=== PATIENT | female | born 1980 | race Caucasian/White ===

== ENCOUNTER 2020-04-16 10:42 | Outpatient (CLI) | payer OTHER ==
--- NOTE | 2020-04-16 15:05 | XRAY Report ---
PROCEDURE: Finger(s) RT INDICATIONS: RIGHT 3RD DIGIT PAIN TECHNIQUE: AP hand, 2 views of the right third finger(s) acquired. COMPARISON: None FINDINGS: Bones: No fractures or dislocations. No suspicious bony lesions. Soft tissues: No suspicious soft tissue calcifications. IMPRESSION: No acute finding. Reviewed by: Christian Russell MD on 04/16/2020 3:04 PM PST Approved by: Christian Russell MD on 04/16/2020 3:04 PM [facility] Station ID: [id number]
== END 2020-04-16 10:43 | disposition home or self-care (01) ==
LOC: DI.N 10:42
PROVIDERS: ATTEND Family Medicine
DX: M79.644 Pain in right finger(s) (principal)

== ENCOUNTER 2020-06-05 08:39 | Outpatient (CLI) | payer OTHER ==
[2020-06-05 12:35] LABS: BASOPHILS # (AUTO) 0.1 10^3/uL (0.0-0.1); BASOPHILS % (AUTO) 1.2 %; EOSINOPHILS # (AUTO) 0.1 10^3/uL (0.0-0.7); EOSINOPHILS % (AUTO) 2.7 %; HCT - HEMATOCRIT 41.2 % (37.0-47.0); HGB - HEMOGLOBIN 13.5 g/dL (12.0-16.0); LYMPHOCYTES # (AUTO) 1.5 10^3/uL (1.5-3.5); LYMPHOCYTES % (AUTO) 31.1 %; MEAN CORPUSCULAR HEMOGLOBIN 29.6 pg (27.0-31.0); MEAN CORPUSCULAR HGB CONC 32.8 g/dL (32.0-36.0); MEAN CORPUSCULAR VOLUME 90.4 fL (81.0-99.0); MEAN PLATELET VOLUME 11.8 fL (7.9-10.8); MONOCYTES # (AUTO) 0.3 10^3/uL (0.0-1.0); MONOCYTES % (AUTO) 6.7 %; NEUTROPHILS # (AUTO) 2.8 10^3/uL (1.5-6.6); NEUTROPHILS % (AUTO) 58.1 %; PLT - PLATELET COUNT 210 10^3/uL (130-450); RED BLOOD COUNT 4.56 10^6/uL (4.20-5.40); RED CELL DISTRIBUTION WIDTH 14.3 % (12.0-15.0); WHITE BLOOD COUNT 4.9 x10^3/uL (4.8-10.8)
[2020-06-05 13:11] LABS: THYROID STIMULATING HORMONE 1.6 uIU/mL (0.34-5.60)
[2020-06-05 13:39] LABS: FOLLICLE STIMULATING HORMONE 8.5 mIU/mL
[2020-06-05 13:40] LABS: LUTEINIZING HORMONE 17.12 mIU/mL
== END 2020-06-05 23:59 | disposition home or self-care (01) ==
LOC: LAB.N 08:39
PROVIDERS: ATTEND Physician Assistant Medical
DX: N92.6 Irregular menstruation, unspecified (principal)
CPT/HCPCS: 36415; 83001; 83002; 84443; 85025

== ENCOUNTER 2020-08-03 16:20 | Outpatient (CLI) | payer OTHER ==
[2020-08-03 17:16] LABS: HCT - HEMATOCRIT 38.2 % (37.0-47.0); HGB - HEMOGLOBIN 12.9 g/dL (12.0-16.0); MEAN CORPUSCULAR HEMOGLOBIN 29.9 pg (27.0-31.0); MEAN CORPUSCULAR HGB CONC 33.8 g/dL (32.0-36.0); MEAN CORPUSCULAR VOLUME 88.6 fL (81.0-99.0); MEAN PLATELET VOLUME 10.6 fL (7.9-10.8); RED BLOOD COUNT 4.31 10^6/uL (4.20-5.40); RED CELL DISTRIBUTION WIDTH 13.6 % (12.0-15.0); WHITE BLOOD COUNT 6.5 x10^3/uL (4.8-10.8)
[2020-08-03 17:52] LABS: PROLACTIN 5.33 ng/mL
[2020-08-03 17:53] LABS: CALCIUM 9.4 mg/dL (8.5-10.3); CREATININE 0.8 mg/dL (0.4-1.0); POTASSIUM 3.6 mmol/L (3.5-5.0)
[2020-08-03 18:16] LABS: FOLLICLE STIMULATING HORMONE 43.3 mIU/mL
== END 2020-08-03 16:21 | disposition home or self-care (01) ==
LOC: LAB 16:20
PROVIDERS: ATTEND Obstetrics & Gynecology
DX: N28.9 Disorder of kidney and ureter, unspecified (principal); Z13.21 Encounter for screening for nutritional disorder; N92.6 Irregular menstruation, unspecified
CPT/HCPCS: 36415; 80048; 82306; 82670; 83001; 84146; 84443; 85027

== ENCOUNTER 2020-08-28 14:05 | Outpatient (CLI) | payer OTHER ==
--- NOTE | 2020-08-28 19:40 | Ultrasound Report ---
PROCEDURE: Pelvic w/Transvaginal INDICATIONS: IRREGULAR MENSES TECHNIQUE: Real-time scanning was performed of the pelvic organs, with image documentation. Additional endovagi nal scanning was necessary due to incomplete visualization of the adnexal and endometrial structures by transabdominal scanning. COMPARISON: None. FINDINGS: No pathologic free abdominal or pelvic fluid, although a small amount of free fluid is seen within th e pelvic cul-de-sac, which is likely within physiologic limits. Uterus: Uterus is normal in size at 8.6 x 4.7 x 5.8 cm. The endometrium measures 5 mm in combined t hickness. Ovaries: The right ovary measures 4.4 x 2.1 x 2.1 cm and the left ovary measures 3.8 x 2.2 x 2.2 cm. The left ovary is not well seen. No significant ovarian abnormalities are seen. There are less than 12 follicles seen on each side. No adnexal masses are seen. IMPRESSION: No significant pelvic ultrasound abnormality can be seen. Normal-appearing endometrial stripe. Normal-appearing ovaries. Reviewed by: Dipak Shepherd MD on 08/28/2020 7:38 PM PDT Approved by: Dipak Shepherd MD on 08/28/2020 7:38 PM PDT Station ID: [id number]
== END 2020-08-28 14:06 | disposition home or self-care (01) ==
LOC: DI 14:05
PROVIDERS: ATTEND Obstetrics & Gynecology
DX: N92.6 Irregular menstruation, unspecified (principal)